=== PATIENT | male | born 1990 | race Caucasian/White ===

== ENCOUNTER 2018-01-08 15:16 | Emergency (ER) | payer OTHER, BC, SELFPAY ==
[~2018-01-08] VITALS: Ht 167.6 cm; Wt 90.7 kg
[~2018-01-08 15:16] MED LIST: Amoxicillin875 MG PO; CEPH500 PO; NEOCOLOTSU RIGHTEAR; Protonix40 MG PO
[2018-01-10 04:10] LABS: HCV ANTIBODY <0.1 (0.0-0.9); HEPATITIS B SURF AB QUANT 3.4 mIU/mL (Immunity>9.9)
[2018-01-10 08:18] LABS: HIV SCREEN 4TH GENERATION WRFX Non Reactive (Non Reactive)
== END 2018-01-08 16:19 | disposition home or self-care (01) ==
LOC: ER 15:16
PROVIDERS: Physician Assistant
DX: Z77.21 Contact with and (suspected) exposure to potentially hazardous body fluids (principal); Z88.2 Allergy status to sulfonamides; K21.9 Gastro-esophageal reflux disease without esophagitis
CPT/HCPCS: 36415; 84460; 86317; 86803; 87389; 99283